=== PATIENT | female | born 1985 | race Caucasian/White ===

== ENCOUNTER 2018-05-09 21:54 | Inpatient (IN) | payer OTHER ==
[2018-05-09 22:59] LABS: ADD MAN DIFF? NO
[2018-05-09] MEDS ORDERED: MISOPROSTOL 200 MCG TAB PR (23:00)
[2018-05-09] MEDS ORDERED: CARBOPROST 250 MCG INJ IM (23:00)
[2018-05-09] MEDS ORDERED: OXYTOCIN 30 UNITS/LR 500 ML IV ×2 (23:00)
[2018-05-09] MEDS ORDERED: METHYLERGONOVINE 0.2 MG INJ IM (23:00)
[2018-05-09 23:02] LABS: BASOPHILS % 0.2 % (0.0-2.0); EOSINOPHILS % 0.5 % (0.0-7.0); HEMATOCRIT 35.6 % (37.0-47.0); HEMOGLOBIN 12.3 g/dl (12.0-16.0); LYMPHOCYTES # 1.6 10^3/ul (0.8-2.9); LYMPHOCYTES % 19.6 % (15.0-51.0); MEAN CORPUSCULAR HEMOGLOBIN 29.1 pg (29.0-33.0); MEAN CORPUSCULAR HGB CONC 34.6 g/dl (32.0-37.0); MEAN CORPUSCULAR VOLUME 84.2 fl (82.0-101.0); MEAN PLATELET VOLUME 9.7 fl (7.4-10.4); MONOCYTE # 0.6 10^3/ul (0.3-0.9); MONOCYTES % 7.2 % (0.0-11.0); NEUTROPHILS % 72.1 % (39.0-77.0); PLATELET COUNT 203 10^3/UL (140-415); RED BLOOD COUNT 4.23 10^6/ul (4.20-5.40); RED CELL DISTRIBUTION WIDTH 12.8 % (11.5-14.5)
[2018-05-09 23:02] LABS: WHITE BLOOD COUNT 8.4 10^3/ul (4.8-10.8)
[2018-05-09 23:21] LABS: INR 0.84; PROTIME 11.6 Sec (11.9-14.9); PT RATIO 0.9
[2018-05-09 23:22] LABS: PARTIAL THROMBOPLASTIN TIME 24.4 Sec (23.0-35.0)
[2018-05-09 23:51] LABS: HEPATITIS B SURFACE ANTIGEN NEGATIVE (NEGATIVE)
[2018-05-09] MEDS: LACTATED RINGER'S 1,000 ML IV (23:53)
[2018-05-09] MEDS: MISOPROSTOL 50 MCG CAPSULE PO (23:53)
[2018-05-10] MEDS: LACTATED RINGER'S 1,000 ML IV ×3 (04:06→19:29)
[2018-05-10] MEDS: MISOPROSTOL 50 MCG CAPSULE PO ×3 (04:06→18:37)
[2018-05-10 15:06] LABS: RAPID PLASMA REAGIN NONREACTIVE (NR)
[2018-05-11] MEDS: MISOPROSTOL 50 MCG CAPSULE PO (02:00)
[2018-05-11] MEDS: LACTATED RINGER'S 1,000 ML IV ×3 (04:10→15:52)
[2018-05-11] MEDS: BUTORPHANOL 2 MG INJ IV (08:37)
[2018-05-11] MEDS ORDERED: FENTAnyl 2MCG/ML-ROPIV 0.2% 100 ML (12:09)
[2018-05-11] MEDS ORDERED: NALOXONE (0.4 MG/ML) INJ IV (12:30)
[2018-05-11] MEDS ORDERED: ONDANSETRON 4 MG INJ IV (12:30)
[2018-05-11] MEDS: OXYTOCIN 30 UNITS/LR 500 ML IV (13:20)
[2018-05-11] MEDS: FENTAnyl 2MCG/ML-ROPIV 0.2% 100 ML BAG EPI (21:47)
[2018-05-12] MEDS: LACTATED RINGER'S 1,000 ML IV ×3 (00:02→18:00)
[2018-05-12] MEDS: OXYTOCIN 30 UNITS/LR 500 ML IV (04:52)
[2018-05-12] MEDS: MINERAL OIL LIGHT 10 ML VIAL TOP (04:52)
[2018-05-12] MEDS: LIDOCAINE 1% (MPF) 30 ML INJ INJ (04:53)
[2018-05-12] MEDS ORDERED: ZOLPIDEM 5 MG TAB PO (07:00)
[2018-05-12] MEDS ORDERED: OXYCODONE/ASPIRIN (4.88/325) TAB PO ×2 (07:00)
[2018-05-12] MEDS ORDERED: CARBOPROST 250 MCG INJ IM (07:00)
[2018-05-12] MEDS ORDERED: METHYLERGONOVINE 0.2 MG INJ IM (07:00)
[2018-05-12] MEDS ORDERED: MISOPROSTOL 200 MCG TAB PR (07:00)
[2018-05-12] MEDS ORDERED: BENZOCAINE 20% 56 ML SPRAY TOP (07:00)
[2018-05-12] MEDS ORDERED: OXYTOCIN 30 UNITS/LR 500 ML IV (07:00)
[2018-05-12] MEDS: SENNA/DOCUSATE NA (8.6MG/50MG) TAB PO ×2 (09:57→20:41)
[2018-05-12] MEDS: LANOLIN HPA 1 PKT TOP (09:57)
[2018-05-12] MEDS: WITCH HAZEL/GLYCERIN PAD PR (09:58)
[2018-05-12] MEDS: IBUPROFEN 600 MG TAB PO ×3 (12:00→18:00)
[2018-05-13] MEDS: IBUPROFEN 600 MG TAB PO ×4 (00:15→18:13)
[2018-05-13] MEDS: LACTATED RINGER'S 1,000 ML IV ×3 (02:00→19:48)
[2018-05-13 07:22] LABS: ADD MAN DIFF? NO
[2018-05-13 07:23] LABS: BASOPHILS % 0.4 % (0.0-2.0); EOSINOPHILS # 0.1 10^3/ul (0.0-0.5); HEMATOCRIT 32.2 % (37.0-47.0); HEMOGLOBIN 11.1 g/dl (12.0-16.0); LYMPHOCYTES # 1.7 10^3/ul (0.8-2.9); LYMPHOCYTES % 16.7 % (15.0-51.0); MEAN CORPUSCULAR HEMOGLOBIN 29.6 pg (29.0-33.0); MEAN CORPUSCULAR HGB CONC 34.5 g/dl (32.0-37.0); MEAN CORPUSCULAR VOLUME 85.9 fl (82.0-101.0); MEAN PLATELET VOLUME 9.9 fl (7.4-10.4); MONOCYTE # 0.7 10^3/ul (0.3-0.9); MONOCYTES % 6.9 % (0.0-11.0); NEUTROPHIL # 7.4 10^3/ul (1.6-7.5); NEUTROPHILS % 74.5 % (39.0-77.0); PLATELET COUNT 156 10^3/UL (140-415); RED BLOOD COUNT 3.75 10^6/ul (4.20-5.40)
[2018-05-13 07:23] LABS: WHITE BLOOD COUNT 9.9 10^3/ul (4.8-10.8)
[2018-05-13] MEDS: SENNA/DOCUSATE NA (8.6MG/50MG) TAB PO ×2 (09:36→21:38)
[2018-05-14] MEDS: LACTATED RINGER'S 1,000 ML IV (01:19)
[2018-05-14] MEDS: IBUPROFEN 600 MG TAB PO ×2 (06:02)
[2018-05-14] MEDS: SENNA/DOCUSATE NA (8.6MG/50MG) TAB PO (09:00)
[2018-05-14] MEDS: DIPHTH/TET/ACEL PERTUSS (ADULT) 0.5 ML VIAL IM* (09:20)
== END 2018-05-14 12:15 | disposition home or self-care (01) | DRG 807 ==
LOC: PP1 05-12 07:47 → L-D 21:54
PROVIDERS: Specialist
PROC: 3E0P7VZ Introduction of Hormone into Female Reproductive, Via Natural or Artificial Opening (ICD-10-PCS; 2018-05-09)
PROC: 10E0XZZ Delivery of Products of Conception, External Approach (ICD-10-PCS; principal; 2018-05-12)
DX: O48.0 Post-term pregnancy (principal); Z37.0 Single live birth; Z3A.40 40 weeks gestation of pregnancy
CPT/HCPCS: 62319; 76815; 85025; 85610; 85730; 86592; 86850; 86900; 86901; 87340; 99464